=== PATIENT | female | born 1980 | race African-American/Black ===

== ENCOUNTER 2017-03-17 20:28 | Emergency (ER) | payer OTHER ==
[2017-03-17 20:40] VITALS: BP 160/85; TEMP 98; BMI 38.3
[2017-03-17 20:47] LABS: URINE APPEARANCE CLEAR; URINE BILIRUBIN NEGATIVE (NEGATIVE); URINE COLOR LTYELLOW; URINE GLUCOSE (UA) NEGATIVE (NEGATIVE); URINE KETONE NEGATIVE (NEGATIVE); URINE LEUK ESTERASE NEGATIVE (NEGATIVE); URINE NITRITE NEGATIVE (NEGATIVE); URINE PROTEIN NEGATIVE (NEGATIVE); URINE UROBILINOGEN NEGATIVE E.U./dl (0.2-1.0)
[2017-03-17 20:48] LABS: URINE BLOOD 1+ (NEGATIVE)
[2017-03-17 20:49] LABS: URINE MUCUS RARE; URINE RBC <1 /hpf (0-3); URINE WBC <1 /hpf (3-5)
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
[2017-03-17] MEDS ORDERED: IBUPROFEN 600 MG TABLET (FP) PO ONE ×2 (21:18→21:20)
[2017-03-17 22:23] VITALS: PULSE 78
== END 2017-03-17 22:24 | disposition home or self-care (01) ==
LOC: JERFT 20:28
DX: S46.812A Strain of other muscles, fascia and tendons at shoulder and upper arm level, left arm, initial encounter (principal); S29.011A Strain of muscle and tendon of front wall of thorax, initial encounter; V59.49XA Driver of pick-up truck or van injured in collision with other motor vehicles in traffic accident, initial encounter; Y92.488 Other paved roadways as the place of occurrence of the external cause; Y93.89 Activity, other specified; Y99.8 Other external cause status
CPT/HCPCS: 71101-TC; 81003; 81015; 84703; 99281-25

== ENCOUNTER 2017-04-03 13:55 | Emergency (ER) | payer OTHER ==
[2017-04-03 13:59] VITALS: BP 138/57; PULSE 82; TEMP 98.5; BMI 38.3
[2017-04-03] MEDS ORDERED: KETOROLAC TROMETHAMINE 60 MG/2 ML VIAL IM ONE (14:27)
[2017-04-03] MEDS ORDERED: IBUPROFEN 400 MG TABLET (FP) PO ONE ×3 (14:37→14:48)
--- NOTE | 2017-04-03 15:16 | PDOC ---
History of Present Illness - General Chief Complaint: Injury Stated Complaint: FALL Time Seen by Provider: 04/03/17 14:08 - History of Present Illness Initial Comments: 04/03/17 15:08 CHIEF COMPLAINT: HISTORY OF PRESENT ILLNESS: 36 yo F with no PMH presents to [facility] s/p fall. Patient reports tripping on an uneven sidewalk and twisting her R ankle and falling onto her L knee. Patient reports cleaning her abrasion "multiple times with peroxide." PAST MEDICAL HISTORY: Denies past medical history SURGICAL HISTORY: Denies ALLERGIES: fruit REVIEW OF SYSTEMS General/Constitutional: Denies fever or chills. Denies weakness, weight change. HEENT: Denies change in vision. Denies ear pain or discharge. Denies sore throat. Cardiovascular: Denies chest pain or shortness of breath. Respiratory: Denies cough, wheezing, or hemoptysis. Gastrointestinal: Denies nausea, vomiting, diarrhea or constipation. Denies rectal bleeding. Genitourinary: Denies dysuria, frequency, or change in urination. Musculoskeletal: Pain to R ankle and L knee. Denies joint or muscle swelling or pain. Denies neck or back pain. Skin and breasts: Denies rash or easy bruising. Neurologic: Denies headache, vertigo, loss of consciousness, or loss of sensation. PHYSICAL EXAM General Appearance: Well-appearing, appropriately dressed. No apparent distress. HEENT: EOMI, PERRLA. Neck: Supple. Trachea midline. No tenderness, rigidity, carotid bruit, stridor , lymphadenopathy, or thyromegaly. Respiratory/Chest: Lungs CTAB. Cardiovascular: RRR. S1, S2. Musculoskeletal: Marked swelling and tenderness to lateral malleolus of R foot. Limited ROM secondary to pain. Full ROM to all other extremities. Integumentary: 3 cm x 3cm superficial abrasion to L knee. Appropriate color, dry, warm. 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 Fully oriented, alert. Appropriate mood/affect. Motor strength 5/5. No appreciable EOM palsy, facial droop or sensory deficit. Past History - Past Medical History Allergies/Adverse Reactions: Allergies Allergy/AdvReac Type Severity Reaction Status Date / Time No Known Drug Allergies Allergy Verified 04/03/17 13:59 fruit Allergy Intermediate Hives Uncoded 04/03/17 13:59 Home Medications: Ambulatory Orders Naproxen [Naprosyn -] 500 mg PO BID #20 tablet 04/03/17 Asthma: Yes () - Surgical History Cholecystectomy: Yes (2003) - Psycho/Social/Smoking Cessation Hx Anxiety: No Suicidal Ideation: No Smoking Status: Yes Smoking History: Current some day smoker Have you smoked in the past 12 months: No Number of Cigarettes Smoked Daily: 3 Information on smoking cessation initiated: No 'Breaking Loose' booklet given: 07/02/16 Hx Alcohol Use: Yes (SOCIAL) Drug/Substance Use Hx: No Substance Use Type: None *Physical Exam - Vital Signs Last Vital Signs Temp Pulse Resp BP Pulse Ox 98.5 F 82 20 138/57 100 04/03/17 13:56 04/03/17 13:56 04/03/17 13:56 04/03/17 13:56 04/03/17 13:56 ED Treatment Course - RADIOLOGY Radiology Studies Ordered: Category Date Time Status ANKLE & FOOT-RIGHT* [RAD] Stat Radiology 04/03/17 14:27 Completed - Medications Given in the ED: ED Medications Discontinued Medications Generic Name Dose Route Start Last Admin Trade Name Freq PRN Reason Stop Dose Admin Ibuprofen 800 mg 04/03/17 14:37 04/03/17 14:50 Motrin - PO 04/03/17 14:38 800 mg ONCE ONE Administration Ketorolac Tromethamine 60 mg 04/03/17 14:27 04/03/17 14:50 Toradol Injection - IM 04/03/17 14:28 Not Given ONCE ONE Medical Decision Making - Medical Decision Making 04/03/17 15:16 36 yo F with no PMH presents to [facility] s/p fall. -60 mg Toradol Patient refused Toradol. 800 mg Motrin X-ray R ankle/ft Negative x-ray. Crutches, art bandage. Advised patient to apply RICE therapy to R foot. Advised patient to f/u with ortho if pain and swelling persists past 1 week. Advised patient of signs and symptoms for return to ER; patient verbalized understanding and agrees to paln. *DC/Admit/Observation/Transfer Diagnosis at time of Disposition: Abrasion of skin Ankle sprain Qualifiers: Encounter type: initial encounter Involved ligament of ankle: other ligament Laterality: right Qualified Code(s): S93.491A - Sprain of other ligament of right ankle, initial encounter - Discharge Dispostion Disposition: HOME Condition at time of disposition: Stable Admit: No - Prescriptions Prescriptions: Naproxen [Naprosyn -] 500 mg PO BID #20 tablet - Referrals Referrals: Terrence Pandya [Primary Care Provider] - Mendez Haider MD [Staff Physician] - - Patient Instructions Printed Discharge Instructions: DI for Ankle Sprain, How To Perform RICE (Rest , Ice, Compress, Elevate) Additional Instructions: Please take medication as prescribed. Apply RICE therapy (instructions provided ) to decrease inflammation and pain. Keep the area of skin abrasion clean and dry for the next 24-48 hours. Afterwards you may wash with soap and water. Follow up with orthopedics if pain and swelling persists past 1 week. Return to the ER should you develop any redness, swelling, warmth, or streaking to your skin abrasion, or if you develop any new or worsening symptoms.
[2017-04-03] MEDS ORDERED: DIPHTH,PERTUSS(ACELL),TET 0.5 ML DISP.SYRIN IM ONE (15:21)
== END 2017-04-03 15:40 | disposition home or self-care (01) ==
LOC: JERFT 13:55
DX: S93.491A Sprain of other ligament of right ankle, initial encounter (principal); S80.212A Abrasion, left knee, initial encounter; W10.1XXA Fall (on)(from) sidewalk curb, initial encounter; Y93.89 Activity, other specified; Y92.480 Sidewalk as the place of occurrence of the external cause
CPT/HCPCS: 73610-TC-RT; 73630-TC-RT; 99281-25